=== PATIENT | female | born 1995 | race African-American/Black ===

== ENCOUNTER → 2018-04-17 | Emergency (ER) | payer SELFPAY ==
[~2018-04-17] VITALS: Ht 162.6 cm; Wt 74.8 kg
[~2018-04-17] MED LIST: LIDOCAINE700 M1 TP; Methocarbamol 500mg tab ORAL ONE; ROBAXIN500 MG PO; TRAMADOL HCL50 MG ORAL; Tylenol #3 tab (300mg/30mg) ORAL ONE
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
[2018-04-17 14:48] VITALS: BP 132/79
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
[2018-04-17 16:17] VITALS: BP 124/74
--- NOTE | 2018-04-17 16:17 | NUR ---
ER DISCHARGE NOTE: Patient is cleared to be discharged per ERMD, pt is aox4, on room air, with stable vital signs. pt was given dc and prescription instructions, pt was able to verbalize understanding, pt id band removed. pt is able to ambulate with steady gait. pt took all belongings.
--- NOTE | 2018-04-17 19:34 | Diagnostic Imaging Report ---
EXAM: XR Left Hand Complete, 3 or More Views CLINICAL HISTORY: PAIN TECHNIQUE: Frontal, lateral and oblique views of the left hand. COMPARISON: No relevant prior studies available. FINDINGS: Bones/joints: Fracture of the fourth metacarpal. Soft tissues: Soft tissue swelling. IMPRESSION: Fracture of the fourth metacarpal.
== END | disposition home or self-care (01) ==
LOC: EDBD 13:59 → EMR 14:30
DX: S20.219A Contusion of unspecified front wall of thorax, initial encounter (principal); S62.305A Unspecified fracture of fourth metacarpal bone, left hand, initial encounter for closed fracture; S63.502A Unspecified sprain of left wrist, initial encounter; V43.52XA Car driver injured in collision with other type car in traffic accident, initial encounter; Y92.410 Unspecified street and highway as the place of occurrence of the external cause
CPT/HCPCS: 71046; 81025; 99283